=== PATIENT | female | born 1960 | race African-American/Black ===

== ENCOUNTER 2017-05-30 01:43 | Emergency (ER) | payer SELFPAY ==
[~2017-05-30] VITALS: Ht 170.2 cm; Wt 59.0 kg
[2017-05-30 09:15] LABS: CLARITY URINE CLEAR (CLEAR); COLOR URINE YELLOW (YELLOW); KETONES URINE NEGATIVE (NEGATIVE); LEUKOCYTE ESTERASE URINE 2+ (NEGATIVE); NITRITE URINE NEGATIVE (NEGATIVE); OCCULT BLOOD URINE NEGATIVE (NEGATIVE); PROTEIN URINE NEGATIVE (NEGATIVE); SPECIFIC GRAVITY URINE 1.021 (1.005-1.030)
[2017-05-30 09:29] LABS: BASOPHILS % 1.7 % (0.0-2.0); EOSINOPHILS % 9.6 % (0.0-5.0); HEMATOCRIT. 34.3 % (36.0-48.0); LYMPHOCYTES % 41.4 % (20.0-50.0); MEAN CORPUSCULAR HEMOGLOBIN 26.1 pg (28.0-32.0); MEAN CORPUSCULAR VOLUME 81.5 fL (81.0-99.0); MEAN PLATELET VOLUME 7.7 fl (7.4-10.4); MONOCYTES % 8.4 % (2.0-8.0); NEUTROPHILS % 38.9 % (40.0-76.0); PLATELET 369 x1000/uL (130-400); RED BLOOD CELL COUNT 4.22 mill/uL (4.2-5.4)
[2017-05-30 09:34] LABS: CHLORIDE 105 mEq/L (98-107)
[2017-05-30 09:39] LABS: ETHANOL BLOOD < 10 mg/dL
[2017-05-30 09:49] LABS: *AMPHETAMINES SCREEN URINE NEGATIVE (NEGATIVE); *BARBITURATES SCREEN URINE NEGATIVE (NEGATIVE); *BENZODIAZEPINES SCREEN URINE NEGATIVE (NEGATIVE); *COCAINE SCREEN URINE NEGATIVE (NEGATIVE); METHADONE URINE SCREEN NEGATIVE (NEGATIVE); OPIATES URINE SCREEN NEGATIVE (NEGATIVE)
[2017-05-30 09:50] LABS: CANNABINOID URINE SCREEN NEGATIVE (NEGATIVE); PHENCYCLIDINE URINE SCREEN NEGATIVE (NEGATIVE)
[2017-05-30] MEDS ORDERED: HYDROCORTISONE 2.5% OINT 20GM TOP SCH (10:00)
[2017-05-30] MEDS ORDERED: DIPHENHYDRAMINE HCL/ZINC ACET 28 GM CREAM TOP ONE (10:00)
[2017-05-30] MEDS ORDERED: PHENYTOIN SODIUM EXTENDED 100MG CAPSULE PO ONE (13:15)
[2017-05-30] MEDS ORDERED: AMLODIPINE 10MG TABLET PO ONE (14:15)
[2017-05-30] MEDS ORDERED: CLONIDINE 0.1MG TABLET PO ONE (14:15)
[2017-05-30 15:30] VITALS: BP 118/69
== END 2017-05-30 15:31 | disposition home or self-care (01) ==
LOC: EDBD → ER 01:53
DX: N39.0 Urinary tract infection, site not specified (principal); L29.9 Pruritus, unspecified; F31.9 Bipolar disorder, unspecified; R56.9 Unspecified convulsions; I10 Essential (primary) hypertension; Z85.3 Personal history of malignant neoplasm of breast; Z88.0 Allergy status to penicillin
CPT/HCPCS: 36415; 80053; 80185; 80305; 80307; 80329; 81003; 83690; 85025; 87086; 99284; G0482

== ENCOUNTER 2017-05-31 00:04 | Emergency (ER) | payer SELFPAY ==
[~2017-05-31] VITALS: Ht 170.2 cm; Wt 59.0 kg
[2017-05-31] MEDS ORDERED: IBUPROFEN 600MG TABLET PO ONE (05:00)
[2017-05-31 13:44] VITALS: BP 118/63
== END 2017-05-31 14:14 | disposition home or self-care (01) ==
LOC: ER 00:04
DX: M79.89 Other specified soft tissue disorders (principal); M79.661 Pain in right lower leg; M54.2 Cervicalgia; F31.9 Bipolar disorder, unspecified; I10 Essential (primary) hypertension; Z88.0 Allergy status to penicillin
CPT/HCPCS: 93970; 99284

== ENCOUNTER 2017-06-06 01:30 | Emergency (ER) | payer SELFPAY ==
[~2017-06-06] VITALS: Ht 167.6 cm; Wt 64.0 kg
[2017-06-06] MEDS ORDERED: ACETAMINOPHEN 325MG TABLET PO STA (06:39)
[2017-06-06] MEDS ORDERED: SODIUM CHLORIDE 0.9% 1,000 ML IV ONE (06:39)
[2017-06-06 08:54] VITALS: BP 100/44
== END 2017-06-06 12:03 | disposition home or self-care (01) ==
LOC: ER 01:38
DX: R10.9 Unspecified abdominal pain (principal); I10 Essential (primary) hypertension; F31.9 Bipolar disorder, unspecified; Z88.0 Allergy status to penicillin
CPT/HCPCS: 74018; 99283; J7030; Z7610